=== PATIENT | female | born 1990 | race Two or more races ===

== ENCOUNTER 2016-06-07 22:13 | Outpatient (CLI) | payer MEDICAID ==
[2016-06-08 00:07] VITALS: BMI 36.8
[2016-06-08] MEDS ORDERED: IV START KIT ONE (00:15)
[2016-06-08] MEDS ORDERED: LACTATED RINGERS 1,000 ML IV SCH (00:15)
== END 2016-06-08 02:12 | disposition home or self-care (01) ==
LOC: FBC 22:13 → FBCOUT 22:13
PROVIDERS: ATTEND Family Medicine
DX: O26.899 Other specified pregnancy related conditions, unspecified trimester (principal); Z3A.00 Weeks of gestation of pregnancy not specified

== ENCOUNTER 2016-06-11 12:41 | Inpatient (IN) | payer MEDICAID ==
[2016-06-11] MEDS ORDERED: CEFAZOLIN SODIUM 2 GRAM DUPLEX 2 G in Premix (D5W) 50 ml 1 EACH IV PRN (13:36)
[2016-06-11] MEDS ORDERED: LACTATED RINGERS 1,000 ML IV SCH (13:45)
[2016-06-11] MEDS ORDERED: IV START KIT ONE (13:50)
[2016-06-11] MEDS ORDERED: LACTATED RINGERS 1,000 ML ONE (13:50)
[2016-06-11] MEDS ORDERED: CEFAZOLIN SODIUM 2 GRAM DUPLEX 50 ML IV ONE (14:09)
[2016-06-11] MEDS ORDERED: SPINAL PROCEDURAL TRAY 1 EACH ONE (14:15)
[2016-06-11] MEDS ORDERED: BUPIVACAINE 0.5% (PRES FREE) 30 ML VIAL ONE (14:15)
[2016-06-11] MEDS ORDERED: BUPIVACAINE 0.75% SPINAL AMPUL 2 ML ONE (14:15)
[2016-06-11] MEDS ORDERED: MORPHINE SULFATE (DURAMORPH) 1 MG/ML 10ML AMP ONE (14:15)
[2016-06-11] MEDS ORDERED: FENTANYL 100 MCG/2 ML VIAL ONE (14:15)
[2016-06-11] MEDS ORDERED: OXYTOCIN 10 UNITS/ML VIAL ONE (14:16)
[2016-06-11 14:22] LABS: HEMATOCRIT 45.9 % (37.0-47.0); MEAN CELL VOLUME 92.4 fl (81.0-99.0); MEAN CORPUSCULAR HEMOGLOBIN 32.2 pg (27.0-31.0); MEAN CORPUSCULAR HGB CONC 34.9 g/dl (33.0-37.0); RED CELL DISTRIBUTION WIDTH 13.7 % (11.5-14.5)
[2016-06-11] MEDS ORDERED: EPHEDRINE SULFATE 50 MG/ML 1ML VIAL IV PRN (14:35)
[2016-06-11] MEDS ORDERED: NALOXONE HCL 0.4 MG/ML VIAL IV PRN (14:35)
[2016-06-11] MEDS ORDERED: HYDROMORPHONE HCL 2 MG/ML SYRINGE IV PRN (14:35)
[2016-06-11] MEDS ORDERED: MORPHINE SULFATE 4 MG/ML SYRINGE IV PRN (14:35)
[2016-06-11] MEDS ORDERED: DIPHENHYDRAMINE HCL 50 MG/1 ML VIAL IV PRN ×2 (14:35→15:47)
[2016-06-11] MEDS ORDERED: ONDANSETRON 4 MG/2ML 2 ML VIAL IV PRN ×2 (14:35→15:47)
[2016-06-11] MEDS ORDERED: HYDROMORPHONE HCL 1 MG/ML SYRINGE IV PRN (14:35)
[2016-06-11] MEDS ORDERED: PROMETHAZINE HCL 25 MG/ML VIAL IM PRN (14:35)
[2016-06-11] MEDS ORDERED: NALBUPHINE HCL 20 MG/ML AMP IV PRN (14:35)
[2016-06-11] MEDS ORDERED: MORPHINE SULFATE 10 MG/ML SYRINGE IV PRN (14:35)
[2016-06-11] MEDS ORDERED: PHENYLEPHRINE 10 MG/1 ML (1%) VIAL ONE (14:50)
[2016-06-11] MEDS ORDERED: KETOROLAC TROMETHAMINE 30 MG/ML 1 ML VIAL ONE (15:09)
[2016-06-11] MEDS ORDERED: MORPHINE SULFATE 2 MG/ML SYRINGE IV PRN (15:34)
--- NOTE | 2016-06-11 15:40 | PDOC37 ---
Procedure: [] Section Date of Procedure: 06/11/16 Start Time: [] Preoperative Diagnosis: 1. 38 week intrauterine . 2. [] Postoperative Diagnosis: Same Surgeon: Esther Lerner MD Assist: [] Indication for Procedure: 25 year old, at 38 weeks 1 days with labor Anesthesia: Spinal with Duramorph Complications: None Estimated Blood Loss: 700 mLs IV Fluids: 2100 mLs of LR Medications: 2 gm of Ancef for routine prophylaxis. 20 units of Pitocin. Urine Output: 300 mLs of clear urine Findings: Fluid clear. Normal uterus, ovaries, and tubes. Procedure: The patient was taken to the operating room where spinal anesthesia was found to be adequate. She was then prepared and draped in the normal sterile fashion in the dorsal supine position with a leftward tilt. A timeout was performed. A Pfannensteil skin incision was then made with the scalpel and carried through to the underlying layer of fascia with the scalpel. The fascia was incised in the midline and the incision extended laterally with the Rabago scissors. The superior aspect of the fascial incision was then grasped with the Ganesh clamps, elevated, and the underlying rectus muscles dissected off bluntly and sharply where needed. Attention was then turned to the inferior aspect of the incision which, in a similar fashion, was grasped, tented up with the Ganesh clamps, and the rectus muscle dissected off bluntly and sharply with Rabago scissors. The rectus muscles were then in the midline, and the peritoneum was identified and entered bluntly. The peritoneal incision was then extended with good visualization of the bladder. The bladder blade was then inserted and the vesicouterine peritoneum identified, grasped with pick- ups and entered sharply with the Metzenbaum scissors. The incision was then extended laterally and the bladder flap created digitally. The bladder blade was then reinserted and the lower uterine segment incised in a transverse fashion with the scalpel. The uterine incision was then extended laterally by pulling superolaterally on both sides. Membranes were ruptured and fluid was clear. The bladder blade was removed the infant's head was flexed out of position and delivered atraumatically. The nose and mouth were suctioned with bulb suction and the cord was clamped and cut after 1 min.. The was handed off to the waiting staff development manager. The placenta was then delivered with gentle cord traction. The uterus was then exteriorized and cleared of all clots and debris. The uterine incision was repaired with 0 vicryl in a running, locked fashion. A second layer of the same suture was used in an imbricating fashion to obtain excellent hemostasis. The gutters were cleared of all clots. The uterus was returned to the abdomen. The peritoneum was closed with 2.0 vicryl. The fascia was reapproximated with 0 Vicryl in a running fashion. The skin was closed with kedar. The patient tolerated the procedure well. Sponge, lap and needle counts were correct times three. A debriefing was held at the end of the procedure with anesthesia and nursing staff. The patient was taken to the recovery room in stable condition.
[2016-06-11] MEDS ORDERED: LANOLIN 50 APPLIC/7G TUBE TP PRN (15:47)
[2016-06-11] MEDS ORDERED: DIPHENHYDRAMINE HCL 25 MG CAPSULE PO PRN (15:47)
[2016-06-11 17:38] VITALS: BMI 34.9
[2016-06-11] MEDS: LACTATED RINGERS 1,000 ML IV SCH (18:59)
[2016-06-11] MEDS: DOCUSATE SODIUM 100 MG CAPSULE PO SCH (20:13)
[2016-06-11] MEDS ORDERED: KETOROLAC TROMETHAMINE 30 MG/ML 1 ML VIAL IV SCH (21:00)
[2016-06-11] MEDS: KETOROLAC TROMETHAMINE 30 MG/ML 1 ML VIAL IV PRN (21:38)
[2016-06-12] MEDS: LACTATED RINGERS 1,000 ML IV SCH ×3 (03:05→16:22)
[2016-06-12] MEDS: KETOROLAC TROMETHAMINE 30 MG/ML 1 ML VIAL IV PRN ×2 (03:41→09:45)
[2016-06-12] MEDS: DOCUSATE SODIUM 100 MG CAPSULE PO SCH (08:27)
[2016-06-12] MEDS: PRENATAL VIT/FE FUMARATE/FA 1 TABLET PO SCH (08:31)
[2016-06-12] MEDS: OXYCODONE/ACETAMINOPHEN 5/325 MG TABLET PO PRN ×3 (08:31→16:24)
--- NOTE | 2016-06-12 12:40 | PDOC44 ---
- Subjective Day: 1 Reports Pain Tolerable, Reports , Denies Vomiting, Denies Fever - Objective Temp Pulse Resp BP Pulse Ox 98.2 F 96 18 100/59 98 06/12/16 08:11 06/12/16 08:11 06/12/16 08:11 06/12/16 08:11 06/11/16 17:55 Lab Results 06/11/16 14:00 WBC 8.9 RBC 4.97 Hgb 16.0 Hct 45.9 Plt Count 217 06/11/16 14:00 MCH 32.2 H Current Medications Generic Name Dose Route Start Last Admin Trade Name Freq PRN Reason Stop Dose Admin Diphenhydramine HCl 25 - 50 mg 06/11/16 15:47 Benadryl PO Q6H PRN Itching (Mild/Moderate) Diphenhydramine HCl 25 - 50 mg 06/11/16 15:47 06/11/16 17:00 Benadryl IV 25 mg Q6H PRN Administration Itching (Severe) Docusate Sodium 100 mg 06/11/16 21:00 06/12/16 08:27 Colace PO 100 mg BID MONTY Administration Emollient Ointment 1 applic 06/11/16 15:47 [id number] TP PRN PRN sore nipples Lactated Ringer's 1,000 mls @ 125 mls/hr 06/11/16 16:00 06/12/16 09:34 Lactated Ringers IV Not Given .Q8H MONTY Ibuprofen 800 mg 06/11/16 21:00 Motrin PO Q6H PRN Pain Ketorolac Tromethamine 30 mg 06/11/16 21:00 06/12/16 09:45 Toradol IV 30 mg Q6H PRN Administration Pain (Mild/Moderate) Multivi/Iron Carb/Fe Sulf/FA/Prenat 1 tab 06/12/16 09:00 06/12/16 08:31 Plus PO 1 tab DAILY MONTY Administration Ondansetron HCl 4 mg 06/11/16 15:47 Zofran IV Q6H PRN Nausea/Vomiting Oxycodone/Acetaminophen 1 - 2 tab 06/11/16 15:47 06/12/16 08:31 Percocet 5/325 PO 1 tab Q4H PRN Administration Pain (Moderate) Sodium Chloride 10 ml 06/11/16 15:47 06/11/16 19:03 Normal Saline 10ml Flush IV 10 ml PRN PRN Administration IV Flush Sodium Chloride 10 ml 06/11/16 17:00 06/12/16 08:28 Normal Saline 10ml Flush IV 10 ml Q8HR MONTY Administration - Physical Exam General: Afebrile, No Acute Distress Psych/Mental Status: Mood/Affect Appropriate, Bonding Well Breast: Soft, Other (bruised nipples.) Fundus: Firm, Midline, At Umbilicus Skin: Warm, Dry Wound PROJECT GEOLOGIST: Dressing in Place - Problems:Assessment/Plan (1) delivery delivered Status: AcuteAssessment/Plan: Routine post op care. H/H ordered as not drawn yet. (2) difficulty in feeding at breast Status: AcuteAssessment/Plan: Has milk teeth, working with . Disposition: Stable
[2016-06-12 13:27] LABS: HEMATOCRIT 38.8 % (37.0-47.0); HEMOGLOBIN 12.9 gm/l (12.0-16.0)
[2016-06-12] MEDS: IBUPROFEN 800 MG TABLET PO PRN (16:17)
[2016-06-13] MEDS: IBUPROFEN 800 MG TABLET PO PRN ×4 (00:17→22:57)
[2016-06-13] MEDS: OXYCODONE/ACETAMINOPHEN 5/325 MG TABLET PO PRN ×6 (00:17→22:57)
[2016-06-13] MEDS: DOCUSATE SODIUM 100 MG CAPSULE PO SCH ×3 (01:57→20:56)
[2016-06-13] MEDS: LACTATED RINGERS 1,000 ML IV SCH ×3 (02:04→17:52)
--- NOTE | 2016-06-13 08:39 | PDOC44 ---
- Subjective Day: 2 Reports Pain Tolerable - Objective Temp Pulse Resp BP Pulse Ox 97.8 F 83 18 117/68 98 06/13/16 07:36 06/13/16 07:36 06/13/16 07:36 06/13/16 07:36 06/12/16 12:41 Lab Results 06/12/16 12:55 Hgb 12.9 D Hct 38.8 Current Medications Generic Name Dose Route Start Last Admin Trade Name Freq PRN Reason Stop Dose Admin Diphenhydramine HCl 25 - 50 mg 06/11/16 15:47 Benadryl PO Q6H PRN Itching (Mild/Moderate) Diphenhydramine HCl 25 - 50 mg 06/11/16 15:47 06/11/16 17:00 Benadryl IV 25 mg Q6H PRN Administration Itching (Severe) Docusate Sodium 100 mg 06/11/16 21:00 06/13/16 01:57 Colace PO 100 mg BID MONTY Administration Emollient Ointment 1 applic 06/11/16 15:47 [id number]-B-[id number] TP PRN PRN sore nipples Lactated Ringer's 1,000 mls @ 125 mls/hr 06/11/16 16:00 06/13/16 02:04 Lactated Ringers IV Not Given .Q8H MONTY Ibuprofen 800 mg 06/11/16 21:00 06/13/16 06:23 Motrin PO 800 mg Q6H PRN Administration Pain Ketorolac Tromethamine 30 mg 06/11/16 21:00 06/12/16 09:45 Toradol IV 30 mg Q6H PRN Administration Pain (Mild/Moderate) Multivi/Iron Carb/Fe Sulf/FA/Prenat 1 tab 06/12/16 09:00 06/12/16 08:31 Plus PO 1 tab DAILY MONTY Administration Ondansetron HCl 4 mg 06/11/16 15:47 Zofran IV Q6H PRN Nausea/Vomiting Oxycodone/Acetaminophen 1 - 2 tab 06/11/16 15:47 06/13/16 06:23 Percocet 5/325 PO 2 tab Q4H PRN Administration Pain (Moderate) Sodium Chloride 10 ml 06/11/16 15:47 06/11/16 19:03 Normal Saline 10ml Flush IV 10 ml PRN PRN Administration IV Flush Sodium Chloride 10 ml 06/11/16 17:00 06/13/16 07:13 Normal Saline 10ml Flush IV Not Given Q8HR MONTY - Physical Exam General: Afebrile Psych/Mental Status: Bonding Well Neurological: Oriented x 4 Lungs: Clear to Auscultation Bilaterally Cardiovascular: Regular Rate and Rhythm Fundus: Firm, Below Umbilicus - Problems:Assessment/Plan (1) delivery delivered Status: AcuteAssessment/Plan: Doing well Normal exam Routine post op care (2) difficulty in feeding at breast Status: AcuteAssessment/Plan: Has milk teeth, working with . Disposition: Stable
[2016-06-13] MEDS: PRENATAL VIT/FE FUMARATE/FA 1 TABLET PO SCH (09:56)
[2016-06-14] MEDS: LACTATED RINGERS 1,000 ML IV SCH ×2 (00:17→10:01)
[2016-06-14] MEDS: OXYCODONE/ACETAMINOPHEN 5/325 MG TABLET PO PRN ×3 (03:25→13:07)
[2016-06-14] MEDS: DOCUSATE SODIUM 100 MG CAPSULE PO SCH (08:10)
[2016-06-14] MEDS: PRENATAL VIT/FE FUMARATE/FA 1 TABLET PO SCH (08:10)
[2016-06-14] MEDS: IBUPROFEN 800 MG TABLET PO PRN (08:10)
[2016-06-14 08:24] VITALS: BP 131/62
--- NOTE | 2016-06-14 10:18 | PDOC39B ---
Hospital Course: ADMIT DATE: 06/11/16 DISCHARGE DATE: 06/14/16 ADMISSION DIAGNOSES: Term intrauterine , history of previous , active labor PROCEDURES: Repeat Low Transverse Section HISTORY OF PRESENT ILLNESS: 25 year old G2 T1 L0 at 38 weeks 1 days presented in active labor with history of previous and desired repeat section. HOSPITAL COURSE: The patient had a repeat section on 06/11/16. Please see op note for details. By day of discharge the patient is ambulating, eating, voiding, and passing flatus without difficulty. Pain is controlled and lochia is appropriate. She is with difficulty, so supplementing with formula. - Physical Exam Vital Signs: Temp Pulse Resp BP Pulse Ox 97.8 F 108 16 131/62 98 06/14/16 08:14 06/14/16 08:14 06/14/16 08:14 06/14/16 08:14 06/12/16 12:41 General: Afebrile Psych/Mental Status: Mood/Affect Appropriate, Bonding Well Neurological: Grossly Intact, Alert HEENT: Atraumatic, EOMI Lungs: Clear to Auscultation Bilaterally, Normal Air Movement Cardiovascular: Regular Rate and Rhythm, Normal S1, Normal S2, No Murmur Fundus: Firm, Midline, Below Umbilicus Wound: Well Approximated, [place] Intact, No Drainage, No Erythema - Discharge Diagnosis (1) delivery delivered Status: AcuteAssessment/Plan: Doing well Normal exam Routine post op care Stable for dc home, will remove kedar prior to dc (2) difficulty in feeding at breast Status: AcuteAssessment/Plan: has [place] teeth, working with . Milk not yet in Supplementing with formula, will continue prior to formula feeds. Using nipple shield. - Discharge Plan Condition: Stable Disposition: Home Instruction Forms: Section Discharge Instructions Prescriptions: Docusate Sodium [COLACE 100 MG CAPSULE (SHF)] 100 mg PO BID #60 Ibuprofen [IBUPROFEN 800 MG TABLET (SHF)] 800 mg PO Q8H PRN #100 PRN Reason: Pain Oxycodone HCl/Acetaminophen [PERCOCET 5/325 MG TABLET (SHF)] 1 - 2 tab PO Q4H PRN #40 PRN Reason: Pain (Moderate) Sennosides [Senna] 8.6 mg PO BID PRN #60 tablet PRN Reason: Constipation Follow-Up: Will Camargo Jr, MD [Primary Care Provider] - 06/15/16 (Clinic will call with appt time)
== END 2016-06-14 14:11 | disposition home or self-care (01) | DRG 766 ==
LOC: FBC 12:41 → FBCOUT 12:41 → FBC 13:30
PROVIDERS: ADMIT Family Medicine; ATTEND Family Medicine
PROC: 10D00Z1 Extraction of Products of Conception, Low, Open Approach (ICD-10-PCS; principal; 2016-06-11)
DX: O34.211 Maternal care for low transverse scar from previous cesarean delivery (principal); Z3A.39 39 weeks gestation of pregnancy; Z37.0 Single live birth